=== PATIENT | male | born 2000 | race Caucasian/White ===

== ENCOUNTER 2021-04-28 17:44 | Emergency (ER) | payer OTHER ==
[~2021-04-28 17:44] MED LIST: ZOFRAN4 MG PO
== END 2021-04-28 18:13 | disposition home or self-care (01) ==
LOC: ER1 17:44
DX: R51.9 Headache, unspecified (principal); Z20.822 Contact with and (suspected) exposure to COVID-19; F17.200 Nicotine dependence, unspecified, uncomplicated
CPT/HCPCS: 99284; U0003

== ENCOUNTER → 2021-08-13 | Outpatient (CLI) | payer OTHER | LOC: RAD 13:19 | DX: U07.1 COVID-19 (principal); J20.9 Acute bronchitis, unspecified | CPT/HCPCS: 71046 ==

== ENCOUNTER 2021-08-21 13:20 | Emergency (ER) | payer OTHER | END 2021-08-21 15:30 | disposition home or self-care (01) | LOC: ER1 13:20 | DX: U07.1 COVID-19 (principal) | CPT/HCPCS: 99283 ==